=== PATIENT | female | born 1995 | race Caucasian/White ===

== ENCOUNTER 2021-06-17 09:40 | Inpatient (IN) | payer SELFPAY, OTHER ==
[2021-06-17] VITALS (20 sets, daily range): BP systolic 91–118; BP diastolic 42–76; PULSE 70–108; RESP 16–18; TEMP 36.4–36.9; O2SAT 97–100; BMI 31.1
--- NOTE | 2021-06-17 09:07 | HP.PCM_ITS ---
History and Physical Date of Admission: 06/17/21 OG ANTEPARTUM RECORD - HISTORY AND PHYSICAL (06/17/2021) Name: ANNIE SCHNEIDER History of this : This is a 25 year old [id number] presents at 39 wks + 0 days gestation for repeat . OB Physician: Albert Awad MD [place]'s Physician: ...................................................................... : 1995 Age: 25 Address: [address] [place] [address] Phone: (h) [phone] (o) [phone] Insurance Carrier: [employer] [id number] Emergency Contact: ...................................................................... Final ELI: 06/24/21 By Ultrasound: 15 weeks 5 days PARITY: (G-Total Pregnancies P-Fullterm,Premature,Induced AB,Spont AB, Ectopics, Multiple,Living) ELI CONFIRMATION: By LMP: 09/23/20 Final ELI: 06/24/21 OB PROBLEM LIST: ALLERGIES: No Known Allergies MEDICATIONS: calcium lactate 100 mg calcium tablet One pill by mouth once a day DHA Algal-900 300 mg capsule One pill by mouth once a day 28 mg iron-800 mcg tablet One pill by mouth once a day Supplement (s) [No Strength] Liquid Chloraphil 1 TBSP daily SOCIAL HISTORY: Smoking - Never Alcohol Use - None Diet - no special diet Lifestyle - moderate stress lifestyle and Exercise - active work Employer - [employer] Job Description - Illicit Drug Use - None Sexual Activity - Spouse-Sig Other Name - Diony Schneider Spouse-Sig Other Occupation - [employer] (Furniture) Children Name(s) - Vitaliy Torrez(17), Noni '19 PRIOR DELIVERY HISTORY DEL DATE GEST LAB WT LB WT OZ TYPE ANES LABOR TX ANTEPARTUM FLOW CHART VISIT GE RTC FU F F CA U U DATE WK MD WKS HT PN HR M SS BP ED WT CA GL D EF ST __ ____ ___ __ __ ___ __ __ __ ___ __ __ __ ___ __ 01 May 27 JMW 31 + + 100/64 0 179 ANTEPARTUM NOTE(S): Apr 27 2021: previa resolved per radiology; no bladder encroachment noted COMPREHENSIVE ANTEPARTUM NOTE(S): Apr 27 2021: Annie is here for consult. She would like to have repeat C/S at [facility]. History of prior C/S x2 REVIEW OF SYSTEMS: GENERAL - Denies fever, or chills SKIN - Denies rash, new skin lesions, or change in moles EYES - Denies blurred vision, or change in visual acuity EARS - Denies ear pain, or difficulty hearing NOSE - Denies nasal congestion, discharge, or bleeding MOUTH - Denies sore throat, or difficulty swallowing NECK - Denies pain or swelling RESPIRATORY - Denies shortness of breath, cough, wheezing CARDIOVASCULAR - Denies palpitations, chest pain, orthopnea, PND, peripheral edema, syncope or claudication GASTROINTESTINAL - Denies nausea, vomiting, diarrhea, constipation, Denies abdominal pain, melena and or bright red blood GENITOURINARY - Denies dysuria, frequency of urination, urgency, or hesitancy MUSCULOSKELETAL - Denies joint or muscle pain, or back pain NEUROLOGICAL - Denies localized numbness, weakness, or tingling PSYCHIATRIC - Denies depression, anxiety, substance abuse or suicide attempts ENDOCRINE - Denies heat or cold intolerance, weight loss or gain, increasing thirst HEMATO-IMMUNOLOGIC - Denies easy bruising, bleeding, oral ulcerations or recurrent infections GENETICS SCREENING: Age 35+ years: No Thalassemia: No Neural Tube Defect: No Down Syndrome: No AUBREE-SACHS: No Sickle Cell Disease: No Hemophilia: No Musc. Dystrophy: No Cystic Fibrosis: No-declines screening [place] Chorea: No Mental Retardation: No Fragile X: No Other genetic: No Other defects: No SABs/still births: No Drugs since LMP: No INFECTION HISTORY: High risk AIDS: No High risk Hepatitis: No Exposed to TB: No Exposed to Herpes: No Rash/viral illness since LMP: No History of STD: No MENSTRUAL HISTORY: *Menarche (Age Onset): 11* PAST SUMMARY: PARITY: 1. Total Pregnancies............ 3 2. Full Term Pregnancies........ 2 3. Premature.................... 0 4. Abortions - Induced.......... 0 5. Abortions - Spontaneous...... 0 6. Ectopics..................... 0 7. Multiple Births.............. 0 8. Living Children.............. 2 PHYSICAL EXAMINATION General Appearence: 25 yo female in no acute distress Vital Signs: AF, VSS Heart: RRR without rubs or gallops Lungs: CTA x 2 Breasts: deferred Abdomen: gravid Pelvis: Cervix: Presentation: cephalic Station: Fetus: Size: AGA Movement: present Heart: present LAB TEST(S) ORDERED SINCE:09/27/20 == ==== Order Observation Description Value Ref_Range A* Site == ==== == ==== Impression /Plan: 39 wks + 0 days intrauterine for repeat . Preparations in progress for delivery.
[2021-06-17] MEDS: Lactated Ringers 1,000 ML 999 ML IV (10:20)
[2021-06-17] MEDS: Acetaminophen 500 MG Tablet 1000 MG PO ×3 (10:34→22:27)
[2021-06-17 10:38] LABS: Absolute Lymphocyte Count 1.47 X10^3/uL (0.83-4.51); Absolute Neutrophil Count 6.2 X10^3/uL (2.0-7.7); Basophil# 0.02 X10^3/uL; Basophil% 0.2 % (0-1); Eosinophil# 0.08 X10^3/uL; Eosinophils% 0.9 % (0-5); Hematocrit 35.9 % (37-47); Hemoglobin 12.4 g/dL (12.0-15.0); Lymphocyte # 1.47 X10^3/ul (0.83-4.51); Lymphocyte % 17.4 % (19-41); Mean Corp Hgb Conc 34.5 g/dL (32-36); Mean Corpuscular Hgb 32.1 pg (27.0-32.0); Mean Platelet Vol. 10.5 fl (6.2-12.0); Monocyte# 0.65 X10^3/uL; Monocyte% 7.7 % (0-10); NRBC Flagged by Analyzer 0 % (0-5); Neutrophil # 6.18 X10^3/uL (2.7-7.7); Neutrophil % 73.3 % (47-70); Platelet Count 205 K/mm3 (150-450); RBC Distribution Width CV 12.7 % (11.6-14.6); RBC Distribution Width SD 43.2 fl (35.1-43.9); Red Blood Count 3.86 M/mm3 (4.2-5.4); White Blood Count 8.4 K/mm3 (4.4-11.0)
[2021-06-17] MEDS: Lactated Ringers 1,000 ML 150 ML IV (11:17)
[2021-06-17 11:53] LABS: HIV - WCH Non-Reactive (Nonreactive); Hepatitis C Antibody Non-Reactive (Nonreactive)
[2021-06-17] MEDS: Sodium Citrate/Citric Acid 30 ML UDC PO (12:23)
[2021-06-17] MEDS: Cefazolin 2 GM in 0.9% Normal Saline 100 ML IV (12:29)
[2021-06-17 12:49] LABS: Chlamydia Trachomatis by PCR Negative (Negative); Neisserai gonorrhoeae by PCR Negative (Negative)
[2021-06-17 12:50] LABS: Probe Check PASS; Sample Adequacy Control PASS; Specimen Processing Control PASS
--- NOTE | 2021-06-17 13:22 | EX.PCM.OBRPT ---
Maternal Data Information Final ELI: 06/24/21 Final ELI Source: US <20 weeks Gestational age: 39 weeks 0-day gestation Details Operative Information Date of Procedure: 06/17/21 Pre-Operative Diagnosis: Prior Section Post-Operative Diagnosis: Prior Section Classification: Scheduled Procedure Type: low transverse professor of communication and writing #1: Devin Plye Type of Anesthesia: Spinal (With Duramorph) Anesthesiologist: Karmen Colon Antibiotic Given: Ancef 2 grams IV x1 Drain: Mera to straight drain Estimated Blood Loss: 500 cc Fluids Replaced: Crystalloid Findings Description of Procedure: Surgeon: Albert Awad MD, FACOG Procedure: Repeat Low Transverse Cervical Caesarean Section Findings: Viable male with Apgars of 9/9 in occiput anterior presentation with clear amniotic fluid and normal three-vessel placenta. Indication: This is a 25-year-old who presents for her third at 39 weeks gestation. care has otherwise been uneventful. The patient has been counseled regarding the risk and indications of this procedure including the possibility of bleeding infection and injury to surrounding structures such as bowel bladder. All questions were answered. Procedure: Patient was taken to the operating room where after spinal anesthesia was placed, the patient was prepped and draped in usual sterile fashion and a Mera catheter was placed. The abdomen was entered through the patient's prior Pfannenstiel incision and peritoneum was entered bluntly. After developing a bladder flap on the lower uterine segment a low transverse incision was made on the uterus and head was easily delivered onto the operative field the nose mouth and oropharynx were bulb suctioned. Subsequently a viable male infant was born with Apgars of 9/9. The was noted to cry move all extremities vigorously on the operative field. The umbilical cord was doubly clamped and ligated and handed to the nursery personnel who were present for the delivery. Placenta was delivered and noted to be 3 vessels and normal. Uterus was exteriorized and remaining placental tissue was removed. The uterus was then closed in 2 layers first with running locked 0 Vicryl suture followed by a second imbricating layer with 0 Vicryl suture. 0 Vicryl suture was then used in a horizontal mattress interrupted fashion to affect final hemostasis of the uterine incision line. Normal fallopian tubes and ovaries were visualized and the uterus was returned to the pelvis. Hemostasis was noted and rectus abdominis muscles were reapproximated in the midline with interrupted Number 0 Vicryl suture in a horizontal mattress fashion. Fascia was closed with running Number 1 PDS Strata fix suture. Subcutaneous tissue was irrigated with copious amounts of saline solution and then closed with running 3-0 Vicryl suture. Skin was closed with 4-0 monocryl suture in a running subcuticular fashion. Steri strips and a Mepilex dressing were placed across the incision. The patient tolerated the procedure well and was taken to the recovery room in satisfactory condition. Sponge, needle, and instrument counts were all reportedly correct. EBL was less than 500 cc. Ancef 2 gms IV was given prior to the procedure. Spicemen to Pathology: None Complications: None Presentation: Positive for Vertex Amniotic Fluid Description: Clear Placental Delivery Description: Spontaneous Placenta Disposition: [facility] Cord Vessel Description: 3 Vessels Cord Entanglement: Around neck x 1, loose Infant A Gender: Male (1 minute): 9 (5 minute): 9 Complications Risks of Surgery Discussed w/Patient: Bleeding, Infection and Injury to surrounding structure(s) including bowel and bladder Complications: None
[2021-06-17] MEDS: Oxytocin 30 units/NS 500 ml 30 UNITS/500 ML IV.SOLN 167 UNITS IV (13:50)
[2021-06-17] MEDS: Ketorolac 30 MG/ML Syringe IV ×2 (14:32→20:41)
[2021-06-17] MEDS: DiphenhydrAMINE 25 MG Capsule PO (16:25)
[2021-06-17] MEDS: Lactated Ringers 1,000 ML 100 ML IV (17:04)
--- NOTE | 2021-06-17 17:30 | NURSING ---
FHR traced with EFM from [id number]. Mild ctx's noted, 30-70 sec, palpate mild, pt. not feeling these. FHR with mod. variability with BL of 125, 15x15 accels present, cat I.
[2021-06-17] MEDS: Cefazolin 1 GM/50 ML BAG IV (20:41)
--- NOTE | 2021-06-17 20:56 | NURSING ---
ruby catheter removed
--- NOTE | 2021-06-17 22:40 | NURSING ---
RN went to assist pt to stand. Pt did well to get to the edge of the bed to sit. After about 5 minutes she states she is feeling dizzy. Pt then laid back into bed and fanned her. Pt states she is starting to feel better. Pt to lay back and rest and will try again later to stand.
[2021-06-18] VITALS (15 sets, daily range): BP systolic 80–102; BP diastolic 36–62; PULSE 66–119; RESP 16–18; TEMP 36.4–37.2; O2SAT 96–98
[2021-06-18] MEDS: Ketorolac 30 MG/ML Syringe IV ×2 (02:38→08:31)
[2021-06-18] MEDS: 0.9% Saline Lock 10 ML Syringe IV ×3 (02:38→11:48)
[2021-06-18] MEDS: Acetaminophen 500 MG Tablet 1000 MG PO ×4 (04:29→22:50)
[2021-06-18] MEDS: Cefazolin 1 GM/50 ML BAG IV (04:29)
[2021-06-18 06:08] LABS: Hematocrit 24.8 % (37-47); Hemoglobin 8.5 g/dL (12.0-15.0); Mean Corp Hgb Conc 34.3 g/dL (32-36); Mean Corpuscular Hgb 32.2 pg (27.0-32.0); Mean Corpuscular Volume 93.9 fL (81-99); Mean Platelet Vol. 10.2 fl (6.2-12.0); Platelet Count 178 K/mm3 (150-450); RBC Distribution Width CV 13.1 % (11.6-14.6); RBC Distribution Width SD 44.4 fl (35.1-43.9); Red Blood Count 2.64 M/mm3 (4.2-5.4); White Blood Count 10.1 K/mm3 (4.4-11.0)
--- NOTE | 2021-06-18 08:58 | PN.OBGYN_ITS ---
Subjective Subjective Reports dizziness with moving too quickly. Denies heart racing, chest pain, shortness of breath. She has been out of bed and ambulating without difficulty. Passing flatus. No nausea or vomiting, tolerates p.o. Denies heavy lochia. She is breast-feeding. Nursing is going well. Objective Data Objective Data Vital Signs: Vital Signs Temp Pulse Resp BP Pulse Ox 98.2 F 93 18 90/43 L 96 06/18/21 07:38 06/18/21 07:38 06/18/21 07:38 06/18/21 07:38 06/18/21 07:38 Oxygen Delivery Method Room Air Weight: 82.4 kg Body Mass Index (BMI) 31.1 Intake & Output: Intake and Output for Last 24 Hours 06/16/21 06/17/21 06/18/21 23:59 23:59 23:59 Intake Total 2602.37 / 2602.37 460 / 460 Output Total 600 / 600 800 / 800 Balance / 37 -340 / -340 Lab / Micro Data Result Diagrams: 06/18/21 05:45 Labs: Laboratory Results - last 24 hr 06/17/21 10:20: WBC 8.4, RBC 3.86 L, Hgb 12.4, Hct 35.9 L, MCV 93.0, MCH 32.1 H, MCHC 34.5, RDW Std Deviation 43.2, RDW Coeff of Erica 12.7, Plt Count 205, MPV 10.5, Immature Gran % (Auto) 0.500, Neut % (Auto) 73.3 H, Lymph % (Auto) 17.4 L, [place] % (Auto) 7.7, Eos % (Auto) 0.9, Baso % (Auto) 0.2, Absolute Neuts (auto) 6.2, Absolute Lymphs (auto) 1.47, Nucleated RBC % 0 06/17/21 10:20: Blood Type O POSITIVE, Antibody Screen NEGATIVE 06/17/21 10:20: Hepatitis C Antibody Non-Reactive, HIV 1&2 Antibody Non-Reactive 06/17/21 10:20: Chlam trachomat DNA PCR Negative, N.gonorrhoeae DNA (PCR) Negative 06/18/21 04:55: WBC Cancelled, Corrected WBC Cancelled, RBC Cancelled, Hgb Cancelled, Hct Cancelled, MCV Cancelled, MCH Cancelled, MCHC Cancelled, RDW Std Deviation Cancelled, RDW Coeff of Erica Cancelled, Plt Count Cancelled, MPV Cancelled, Diff Path Review Cancelled 06/18/21 05:45: WBC 10.1, RBC 2.64 L, Hgb 8.5 L, Hct 24.8 L, MCV 93.9, MCH 32.2 H, MCHC 34.3, RDW Std Deviation 44.4 H, RDW Coeff of Erica 13.1, Plt Count 178, MPV 10.2 Micro: Microbiology 06/17/21 10:20 Nasal Secretion SARS-CoV-2 Antigen (Rapid) - Final Physical Exam Const alert, oriented x3 and no apparent distress Resp normal respiratory effort, normal air movement and clear to auscultation bilaterally Cardio regular rate, regular rhythm, S1 normal heart sound and S2 normal heart sound GI normal to inspection, nondistended, normoactive bowel sounds, soft to palpation, non-tender and non-distended Manual OB Exam: other lochia scant Uterus Palpation: uterus fundus firm Extremity no calf tenderness Assessment & Plan (1) delivery delivered: PLAN: Routine postop care O positive (2) Acute blood loss anemia (ABLA): PLAN: Check orthostatics Repeat CBC in am
[2021-06-18] MEDS: Senna/Docusate Sodium 1 Tablet PO (09:43)
[2021-06-18] MEDS: Lactated Ringers 500 ML 999 ML IV (11:07)
[2021-06-18] MEDS: Ibuprofen 600 MG Tablet PO ×2 (14:58→20:14)
[2021-06-18 15:35] LABS: Absolute Lymphocyte Count 1.12 X10^3/uL (0.83-4.51); Absolute Neutrophil Count 7.4 X10^3/uL (2.0-7.7); Basophil# 0.01 X10^3/uL; Basophil% 0.1 % (0-1); Eosinophil# 0.17 X10^3/uL; Eosinophils% 1.8 % (0-5); Hematocrit 22.5 % (37-47); Hemoglobin 7.7 g/dL (12.0-15.0); Lymphocyte # 1.12 X10^3/ul (0.83-4.51); Lymphocyte % 11.9 % (19-41); Mean Corp Hgb Conc 34.2 g/dL (32-36); Mean Corpuscular Hgb 32.5 pg (27.0-32.0); Mean Corpuscular Volume 94.9 fL (81-99); Mean Platelet Vol. 10.5 fl (6.2-12.0); Monocyte# 0.69 X10^3/uL; Monocyte% 7.3 % (0-10); NRBC Flagged by Analyzer 0 % (0-5); Neutrophil % 78.5 % (47-70); Platelet Count 189 K/mm3 (150-450); RBC Distribution Width CV 13.2 % (11.6-14.6); RBC Distribution Width SD 45.6 fl (35.1-43.9); Red Blood Count 2.37 M/mm3 (4.2-5.4); White Blood Count 9.4 K/mm3 (4.4-11.0)
--- NOTE | 2021-06-18 15:50 | CT_ITS ---
We are attempting to reach an attending provider to discuss findings. An addendum with communication details will be sent when the communication is complete. INDICATION: Low BP, decreasing Hgb, distended abdomen EXAMINATION: CT Abdomen And Pelvis W/ Contrast Injection TECHNIQUE: Helically acquired images were obtained of the abdomen and pelvis after IV contrast. A radiation dose optimization technique was used for this scan. IV Contrast dosage and agent: IV 100mL Isovue-300 Oral contrast: None. COMPARISON: None. FINDINGS: Visualized lung bases: Unremarkable Liver: Unremarkable Gallbladder: Unremarkable Spleen: Unremarkable Pancreas: Unremarkable Adrenal Glands: Unremarkable Kidneys: Unremarkable Vasculature: Unremarkable GI Tract: The large bowel is air-filled and distended measuring up to 8.8 cm in the ascending colon. Lymphadenopathy: None Peritoneum: There is trace pneumoperitoneum. There is a moderate amount of hemoperitoneum in the right paracolic gutter and subphrenic space. There is a large hematoma anterior to the bladder measuring approximately 8.7 x 9.6 x 5.1 cm. It causes mass effect on the bladder. No definite evidence of active extravasation. Bladder: Unremarkable Reproductive organs: Enlarged uterus. Bones/Soft tissues: There are 2 large rectus sheath hematomas measuring 7.2 x 9.6 x 6.7 cm on the right and 6.5 x 10.4 x 5.4 cm on the left. No definite areas of active extravasation. Extensive postsurgical changes in the anterior abdominal wall. CT/Abdomen/Pelvis W IV Cont ONLY IMPRESSION: Status post section with moderate volume hemoperitoneum in the right paracolic gutter, a 9.6 cm intra-abdominal hematoma anterior to the bladder and 2 large rectus sheath hematomas as described above. No definite areas of active extravasation. Postoperative ileus. Electronically Signed: Tomi Alston MD at 16:40 EDT ,
--- NOTE | 2021-06-18 15:52 | NURSING ---
Per Dr. Stephy Yee, call Dr. Stephy Yee if pulse exceeds 100 bpm.
--- NOTE | 2021-06-18 18:16 | PN.OBGYN_ITS ---
Subjective Subjective Patient reports feeling well. No lightheadedness or dizziness, ambulating without difficulty or shortness of breath. Objective Data Objective Data Vital Signs: Vital Signs Temp Pulse Resp BP Pulse Ox 98 F 112 H 18 94/60 96 06/18/21 14:59 06/18/21 17:51 06/18/21 14:59 06/18/21 17:51 06/18/21 14:59 Oxygen Delivery Method Room Air Weight: 82.4 kg Body Mass Index (BMI) 31.1 Intake & Output: Intake and Output for Last 24 Hours 06/16/21 06/17/21 06/18/21 23:59 23:59 23:59 Intake Total 2602.37 / 2602.37 960 / 960 Output Total 600 / 600 800 / 800 Balance / 160 / 160 Lab / Micro Data Result Diagrams: 06/18/21 15:15 Labs: Laboratory Results - last 24 hr 06/18/21 04:55: WBC Cancelled, Corrected WBC Cancelled, RBC Cancelled, Hgb Cancelled, Hct Cancelled, MCV Cancelled, MCH Cancelled, MCHC Cancelled, RDW Std Deviation Cancelled, RDW Coeff of Erica Cancelled, Plt Count Cancelled, MPV Cancelled, Diff Path Review Cancelled 06/18/21 05:45: WBC 10.1, RBC 2.64 L, Hgb 8.5 L, Hct 24.8 L, MCV 93.9, MCH 32.2 H, MCHC 34.3, RDW Std Deviation 44.4 H, RDW Coeff of Erica 13.1, Plt Count 178, MPV 10.2 06/18/21 15:15: WBC 9.4, RBC 2.37 L, Hgb 7.7 L, Hct 22.5 L, MCV 94.9, MCH 32.5 H , MCHC 34.2, RDW Std Deviation 45.6 H, RDW Coeff of Erica 13.2, Plt Count 189, MPV 10.5, Immature Gran % (Auto) 0.400, Neut % (Auto) 78.5 H, Lymph % (Auto) 11.9 L, [place] % (Auto) 7.3, Eos % (Auto) 1.8, Baso % (Auto) 0.1, Absolute Neuts (auto) 7.4, Absolute Lymphs (auto) 1.12, Nucleated RBC % 0 Micro: Microbiology 06/17/21 10:20 Nasal Secretion SARS-CoV-2 Antigen (Rapid) - Final Radiography Diagnostic Testing: Radiology Impression Abdomen/Pelvis CT 06/18/21 15:50 IMPRESSION: Status post section with moderate volume hemoperitoneum in the right paracolic gutter, a 9.6 cm intra-abdominal hematoma anterior to the bladder and 2 large rectus sheath hematomas as described above. No definite areas of active extravasation. Postoperative ileus. Electronically Signed: Tomi Alston MD at 16:40 EDT , ADDENDUM: 06/18/211751 IMPRESSION: Status post section with moderate volume hemoperitoneum in the right paracolic gutter, a 9.6 cm intra-abdominal hematoma anterior to the bladder and 2 large rectus sheath hematomas as described above. No definite areas of active extravasation. Postoperative ileus. N.B. : The above Results were Read Back by Tomi Alston MD to Valerie Jordan RN, and understanding confirmed on 06/18/2021 17:45:26 (ET). Electronically Signed: Tomi lAston MD at 16:40 EDT , Physical Exam Const alert, oriented x3 and no apparent distress Assessment & Plan (1) Acute blood loss anemia (ABLA): PLAN: Hgb 12.5-->7.7 CT a/P with two large rectus sheath hematomas as well as two intra-abdominal hematomas. Reviewed with pt and . Patient orthostatic, but otherwise asx Will give IVF bolus Repeat CBC with Cr in am T&C (2) delivery delivered: (3) Ileus, postoperative: PLAN: Finding on US Likely 2/2 ABLA Tolerates PO, continue regular diet
--- NOTE | 2021-06-18 20:19 | NURSING ---
while RN was assessing infant, pt reported that she felt nauseous. pt reported that she recently drank some chocolate milk because that usually causes her to have a BM, but she felt nauseous right after drinking the milk. pt vomited approx 150 cc of clear fluid containing some food particles. pt reports feeling better after vomiting, stated that she would like to go ahead with evening dose of Motrin and felt like she could tolerate it. Motrin administered. pt reports that she did pass gas for the first time just before vomiting and now feels like she could have a BM. will continue to monitor.
[2021-06-19 01:05] VITALS: BP 100/57; PULSE 98; RESP 16
[2021-06-19] MEDS: Ondansetron 4 MG/2 ML Vial IV (03:01)
[2021-06-19] MEDS: 0.9% Saline Lock 10 ML Syringe IV (03:02)
[2021-06-19 03:35] VITALS: BP 95/54; PULSE 96; RESP 18; TEMP 36.6; O2SAT 96
[2021-06-19] MEDS: Ibuprofen 600 MG Tablet PO ×2 (03:36→09:14)
[2021-06-19 03:39] LABS: Absolute Neutrophil Count 10.6 X10^3/uL (2.0-7.7); Basophil# 0.02 X10^3/uL; Basophil% 0.2 % (0-1); Eosinophil# 0.26 X10^3/uL; Eosinophils% 2.1 % (0-5); Hematocrit 23.4 % (37-47); Hemoglobin 7.9 g/dL (12.0-15.0); Lymphocyte % 7.9 % (19-41); Mean Corp Hgb Conc 33.8 g/dL (32-36); Mean Corpuscular Volume 94.7 fL (81-99); Mean Platelet Vol. 10.3 fl (6.2-12.0); Monocyte# 0.68 X10^3/uL; Monocyte% 5.4 % (0-10); NRBC Flagged by Analyzer 0 % (0-5); Neutrophil # 10.59 X10^3/uL (2.7-7.7); Neutrophil % 83.8 % (47-70); Platelet Count 215 K/mm3 (150-450); RBC Distribution Width CV 13.3 % (11.6-14.6); Red Blood Count 2.47 M/mm3 (4.2-5.4); White Blood Count 12.6 K/mm3 (4.4-11.0)
--- NOTE | 2021-06-19 03:59 | NURSING ---
RN called to room d/t pt feeling nauseous. Pt vomited approx. 100 cc of clear liquid. After vomiting, pt reported feeling slightly better. Will medicate with Zofran and continue to assess.
--- NOTE | 2021-06-19 04:02 | NURSING ---
pt resting comfortably in bed. reports feeling better after taking Zofran. tolerated PO Motrin fine. VS stable and fundus firm. will continue to monitor.
[2021-06-19 05:11] LABS: Creatinine, Serum 0.54 mg/dL (0.55-1.02); EST Glomerular Filtration Rate 145 mL/min (>60); Est Glom Filt Rate - Afr Amer 175 mL/min (>60); Estimated Creatinine Clearance 136.33 ml/min
[2021-06-19] MEDS: Acetaminophen 500 MG Tablet 1000 MG PO (05:26)
--- NOTE | 2021-06-19 07:43 | PCM.DC ---
Discharge Instructions Diet Discharge Diet: No restrictions Activity Discharge Activity: Return to Normal Activity, May Shower and - (No tub bath for 2 weeks) May resume sexual activity in: 4-6 weeks Lifting Restrictions: 10 lb Dressing / Incision Call your doctor if you observe: Fever of 101 or Higher, Inability to urinate, Using more than 1 pad per hour, Shortness of breath, Dizziness, Fainting spells, Chest pain, Increased palpitations (irregular heartbeat), Calf discomfort, Uncontrolled pain and - (Persistent or severe headache) Suture Line Care: Avoid Pulling/Pushing Remove Dressing in: 4 days Cleanse incision/area with: Soap & Water Follow Up Care Please Follow Up With: Albert Awad MD When: 2 weeks for incision check 6 weeks for visit Test Results: Test results from this visit will be discussed in further detail at your follow-up appointment, if applicable. Discharge Plan Admission Admit Date/Time: 06/17/21 09:40 Primary Reason for Your Visit: section, Anemia Attending Provider: Albert Awad Primary Care Provider: Rip Lux Instructions Patient Instructions: Anemia Discharge Orders/Prescriptions Prescriptions: New ibuprofen 600 mg Tablet 600 mg PO Q8H PRN PRN (Reason: pain) Qty: 30 RF: 0 oxycodone 5 mg Tablet 5 mg PO Q6H PRN PRN (Reason: Pain Score 4-10) 5 Days Qty: 10 RF: 0 ferrous sulfate 325 mg (65 mg iron) tablet,delayed release (DR/EC) 325 mg PO BID Qty: 60 RF: 0 Continued prenat.vits,herb,[id number] Tablet 1 tab PO DAILY RF: 0 calcium lactate 100 mg calcium Tablet 100 mg PO DAILY RF: 0 Referrals / Follow Up: Rip Lux MD [Primary Care Provider] - Disposition Disposition (needs filled in before D/C Order can be placed): Home, Self Care
--- NOTE | 2021-06-19 08:02 | PN.OBGYN_ITS ---
Subjective Subjective Had emesis x 1 yesterday evening. Nausea resolved after Zofran. She is passing more gas today. Pain is controlled. Denies heavy lochia. continues eating well. Denies lightheadedness, dizziness, shortness of breath or heart racing. Objective Data Objective Data Vital Signs: Vital Signs Temp Pulse Resp BP Pulse Ox 98 F 96 18 95/54 L 96 06/19/21 03:35 06/19/21 03:35 06/19/21 03:35 06/19/21 03:35 06/19/21 03:35 Oxygen Delivery Method Room Air Weight: 82.4 kg Body Mass Index (BMI) 31.1 Intake & Output: Intake and Output for Last 24 Hours 06/17/21 06/18/21 06/19/21 23:59 23:59 23:59 Intake Total 2602.37 / 2602.37 960 / 960 Output Total 600 / 600 950 / 950 100 / 100 Balance 2001.37 / 2001. 10 / 10 -100 / -100 Lab / Micro Data Result Diagrams: 06/19/21 03:18 06/19/21 03:18 Labs: Laboratory Results - last 24 hr 06/17/21 10:25: Crossmatch See Detail 06/18/21 15:15: WBC 9.4, RBC 2.37 L, Hgb 7.7 L, Hct 22.5 L, MCV 94.9, MCH 32.5 H , MCHC 34.2, RDW Std Deviation 45.6 H, RDW Coeff of Erica 13.2, Plt Count 189, MPV 10.5, Immature Gran % (Auto) 0.400, Neut % (Auto) 78.5 H, Lymph % (Auto) 11.9 L, [place] % (Auto) 7.3, Eos % (Auto) 1.8, Baso % (Auto) 0.1, Absolute Neuts (auto) 7.4, Absolute Lymphs (auto) 1.12, Nucleated RBC % 0 06/19/21 03:18: WBC 12.6 H, RBC 2.47 L, Hgb 7.9 L, Hct 23.4 L, MCV 94.7, MCH 32.0, MCHC 33.8, RDW Std Deviation 46.0 H, RDW Coeff of Erica 13.3, Plt Count 215, MPV 10.3, Immature Gran % (Auto) 0.600, Neut % (Auto) 83.8 H, Lymph % (Auto) 7.9 L, [place] % (Auto) 5.4, Eos % (Auto) 2.1, Baso % (Auto) 0.2, Absolute Neuts (auto) 10.6 H, Absolute Lymphs (auto) 1.00, Nucleated RBC % 0 06/19/21 03:18: Creatinine 0.54 L, Estim Creat Clear Calc 136.33, Est GFR (MDRD) Af Amer 175, Est GFR (MDRD) Non-Af 145 Micro: Microbiology 06/17/21 10:20 Nasal Secretion SARS-CoV-2 Antigen (Rapid) - Final Radiography Diagnostic Testing: Radiology Impression Abdomen/Pelvis CT 06/18/21 15:50 IMPRESSION: Status post section with moderate volume hemoperitoneum in the right paracolic gutter, a 9.6 cm intra-abdominal hematoma anterior to the bladder and 2 large rectus sheath hematomas as described above. No definite areas of active extravasation. Postoperative ileus. Electronically Signed: Tomi Alston MD at 16:40 EDT , ADDENDUM: 06/18/21 1752 IMPRESSION: Status post section with moderate volume hemoperitoneum in the right paracolic gutter, a 9.6 cm intra-abdominal hematoma anterior to the bladder and 2 large rectus sheath hematomas as described above. No definite areas of active extravasation. Postoperative ileus. N.B. : The above Results were Read Back by Tomi Alston MD to Valerie Jordan RN, and understanding confirmed on 06/18/2021 17:45:26 (ET). Electronically Signed: Tomi Alston MD at 16:40 EDT , Assessment & Plan (1) Ileus, postoperative: PLAN: No worsening distension Will have breakfast and if tolerates well plan for d/c home (2) Acute blood loss anemia (ABLA): PLAN: Iron supplementation at discharge H/H stable (3) delivery delivered: PLAN: Plan for d/c home later today if tolerates breakfast
--- NOTE | 2021-06-19 08:10 | PCM.DC.SUM ---
Providers Date of Admission: 06/17/21 Primary Care Physician: Dr. Rip Lux MD Reason For Visit: REPEAT C SECTION Diagnosis Discharge Diagnosis (1) Ileus, postoperative: Status: Acute Code(s): K91.89 - Other postprocedural complications and disorders of digestive system; K56.7 - Ileus, unspecified (2) Acute blood loss anemia (ABLA): Status: Acute Code(s): D62 - Acute posthemorrhagic anemia (3) delivery delivered: Status: Acute Code(s): O82 - Encounter for delivery without indication Medications at Discharge Home Medications calcium lactate 100 mg PO DAILY 06/17/21 prenat.vits,herb,jzc-hfel-hqzan 1 tab PO DAILY 06/17/21 ferrous sulfate 325 mg PO BID #60 tab 06/19/21 ibuprofen 600 mg PO Q8H PRN PRN #30 tab 06/19/21 oxycodone 5 mg PO Q6H PRN PRN 5 Days #10 tab 06/19/21 Hospital Course Operations section Summary of Care Provided Hospital Course: 25yo admitted at 39+ wga for scheduled repeat section. Her postop H/H nadired to 7.7 from 12.4. She was orthostatic. CT A/P demonstrated two large rectus sheath hematomas as well as an intra-abdominal hematoma adjacent to bladder, and ileus. She was given additional fluids with resolution of symptoms and H/H remained stable. She was discharged to home on postoperative day #2. Physical Exam Const alert, oriented x3 and no apparent distress Resp normal respiratory effort, normal air movement and clear to auscultation bilaterally Cardio regular rate, regular rhythm, S1 normal heart sound and S2 normal heart sound GI normal to inspection, nondistended, normoactive bowel sounds, soft to palpation and non-tender GI Narrative: mildly distended Manual OB Exam: other lochia scant Uterus Palpation: uterus fundus firm Extremity no calf tenderness Weight / BMI Weight Weight: 82.4 kg Body Mass Index (BMI) 31.1 ABG / Lab / Microbiology Data Result Diagrams: 06/19/21 03:18 06/19/21 03:18 Laboratory: Laboratory Results - last 24 hr 06/17/21 10:25: Crossmatch See Detail 06/18/21 15:15: WBC 9.4, RBC 2.37 L, Hgb 7.7 L, Hct 22.5 L, MCV 94.9, MCH 32.5 H, MCHC 34.2, RDW Std Deviation 45.6 H, RDW Coeff of Erica 13.2, Plt Count 189, MPV 10.5, Immature Gran % (Auto) 0.400, Neut % (Auto) 78.5 H, Lymph % (Auto) 11.9 L, [place] % (Auto) 7.3, Eos % (Auto) 1.8, Baso % (Auto) 0.1, Absolute Neuts (auto) 7.4, Absolute Lymphs (auto) 1.12, Nucleated RBC % 0 06/19/21 03:18: WBC 12.6 H, RBC 2.47 L, Hgb 7.9 L, Hct 23.4 L, MCV 94.7, MCH 32.0, MCHC 33.8, RDW Std Deviation 46.0 H, RDW Coeff of Erica 13.3, Plt Count 215, MPV 10.3, Immature Gran % (Auto) 0.600, Neut % (Auto) 83.8 H, Lymph % (Auto) 7.9 L, [place] % (Auto) 5.4, Eos % (Auto) 2.1, Baso % (Auto) 0.2, Absolute Neuts (auto) 10.6 H, Absolute Lymphs (auto) 1.00, Nucleated RBC % 0 06/19/21 03:18: Creatinine 0.54 L, Estim Creat Clear Calc 136.33, Est GFR (MDRD) Af Amer 175, Est GFR (MDRD) Non-Af 145 Microbiology: Microbiology 06/17/21 10:20 Nasal Secretion SARS-CoV-2 Antigen (Rapid) - Final Radiography Diagnostic Testing: Radiology Impression Abdomen/Pelvis CT 06/18/21 15:50 IMPRESSION: Status post section with moderate volume hemoperitoneum in the right paracolic gutter, a 9.6 cm intra-abdominal hematoma anterior to the bladder and 2 large rectus sheath hematomas as described above. No definite areas of active extravasation. Postoperative ileus. Electronically Signed: Tomi Alston MD at 16:40 EDT , ADDENDUM: 06/18/21 1752 IMPRESSION: Status post section with moderate volume hemoperitoneum in the right paracolic gutter, a 9.6 cm intra-abdominal hematoma anterior to the bladder and 2 large rectus sheath hematomas as described above. No definite areas of active extravasation. Postoperative ileus. N.B. : The above Results were Read Back by Tomi Alston MD to Valerie Jordan RN, and understanding confirmed on 06/18/2021 17:45:26 (ET). Electronically Signed: Tomi Alston MD at 16:40 EDT , D/C Instructions Discharge Diet: No restrictions May resume sexual activity in: 4-6 weeks Call your doctor if you observe: Fever of 101 or Higher, Inability to urinate, Using more than 1 pad per hour, Shortness of breath, Dizziness, Fainting spells, Chest pain, Increased palpitations (irregular heartbeat), Calf discomfort, Uncontrolled pain and - (Persistent or severe headache) Suture Line Care: Avoid Pulling/Pushing Cleanse incision/area with: Soap & Water Please Follow Up With: Albert Awad MD When: 2 weeks for incision check 6 weeks for visit Meaningful Use Info Meaningful Use Diagnoses (Choose all that apply): None applicable Discharge Plan Admission Admit Date/Time: 06/17/21 09:40 Primary Reason for Your Visit: section, Anemia Attending Provider: Albert Awad Primary Care Provider: Rip Lux Instructions Patient Instructions: Anemia, After a Discharge Orders/Prescriptions Prescriptions: New ibuprofen 600 mg Tablet 600 mg PO Q8H PRN PRN (Reason: pain) Qty: 30 RF: 0 oxycodone 5 mg Tablet 5 mg PO Q6H PRN PRN (Reason: Pain Score 4-10) 5 Days Qty: 10 RF: 0 ferrous sulfate 325 mg (65 mg iron) tablet,delayed release (DR/EC) 325 mg PO BID Qty: 60 RF: 0 Continued prenat.vits,herb,bze-xmsh-iemin Tablet 1 tab PO DAILY RF: 0 calcium lactate 100 mg calcium Tablet 100 mg PO DAILY RF: 0 Referrals / Follow Up: Rip Lux MD [Primary Care Provider] - Disposition Disposition (needs filled in before D/C Order can be placed): Home, Self Care
[2021-06-19 09:20] VITALS: BP 98/54; PULSE 99; RESP 16; TEMP 36.7; O2SAT 98
[2021-06-19 09:52] VITALS: RESP 14
--- NOTE | 2021-06-23 14:31 | NURSING ---
No answer with follow up phone call
== END 2021-06-19 10:35 | disposition home or self-care (01) | DRG 787 ==
PROVIDERS: Obstetrics & Gynecology; Admitting Provider Obstetrics & Gynecology; PCP Orthopaedic Surgery; Visit Provider Obstetrics & Gynecology
PROC: 10D00Z1 Extraction of Products of Conception, Low, Open Approach (ICD-10-PCS; CPT 59514; principal; 2021-06-17 11:45)
DX: O34.211 Maternal care for low transverse scar from previous cesarean delivery (principal); K56.7 Ileus, unspecified; D62 Acute posthemorrhagic anemia; M79.81 Nontraumatic hematoma of soft tissue; Z37.0 Single live birth; O99.62 Diseases of the digestive system complicating childbirth; Z3A.39 39 weeks gestation of pregnancy; O99.02 Anemia complicating childbirth
CPT/HCPCS: 36415; 59025; 59050; 74177; 82565; 85025; 85027; 86703; 86803; 86850; 86900; 86901; 86920; 87426; 87491; 87591; 99218; J7120; Q9967; A4216; G0378; J2405